=== PATIENT | male | born 1970 | race Caucasian/White ===

== ENCOUNTER 2018-03-17 08:29 | Emergency (ER) | payer OTHER ==
[~2018-03-17] VITALS: Ht 165.1 cm; Wt 72.6 kg
[2018-03-17] MEDS ORDERED: FLUORESCEIN SODIUM OPHTH 1 EA STRIP ONE (08:57)
[2018-03-17] MEDS ORDERED: TETRACAINE HCL/PF 0.5% UD 2 ML BOTTLE ONE (08:57)
[2018-03-17] MEDS ORDERED: TETRACAINE HCL/PF 0.5% UD 2 ML BOTTLE EACHEYE ONE (09:00)
[2018-03-17] MEDS ORDERED: FLUORESCEIN SODIUM OPHTH 1 EA STRIP OP ONE (09:00)
[2018-03-17] MEDS ORDERED: IV NS 0.9% 500 ML BAG IV ONE (09:30)
[2018-03-17 09:53] VITALS: BP 145/80
== END 2018-03-17 09:55 | disposition home or self-care (01) ==
LOC: ER 08:32
DX: T15.82XA Foreign body in other and multiple parts of external eye, left eye, initial encounter (principal); F17.200 Nicotine dependence, unspecified, uncomplicated; W45.8XXA Other foreign body or object entering through skin, initial encounter; Y93.89 Activity, other specified; Y92.69 Other specified industrial and construction area as the place of occurrence of the external cause; Y99.0 Civilian activity done for income or pay
CPT/HCPCS: 99283; A4606; J7040; Z7610